=== PATIENT | female | born 1955 | race Caucasian/White ===

== ENCOUNTER → 2017-11-17 | Outpatient (CLI) | payer OTHER ==
[~2017-11-17] MED LIST: CALCIUM 500 +1 EAC5 PO; CARDIZEM CD240 MG PO; HYDROCHLOROTH12.5 M1 PO; LIPITOR10 MG PO; OMEGA-31000 M1 PO; PAXIL10 MG PO; VITAMIN B COMP1 EACH PO
--- NOTE | 2017-11-28 22:52 | ONC ---
[facility] [address] [place] [address] RADIATION ONCOLOGY NOTE Name: EFRA WILCOX Room: [facility]#: [id number] Admission: 11/17/17 Attend Phys: Ranjan Shine MD Discharge: Date of : 53 Report #: [id number] THIS REPORT FOR: //name// CC: Shazia Marr MD DATE OF SERVICE: 11/17/2017 RADIATION ONCOLOGY FOLLOWUP NOTE [facility] phone is [phone]. REFERRING PHYSICIANS: 1. Chalino Sanford M.D. 2. Karly Marr M.D. 3. Shazia La DO. PRIMARY SITE AND HISTOPATHOLOGY: The patient received radiation therapy as part of breast conservation therapy for a T2 N0 M0 right breast cancer. INTERVAL NOTE: The patient ended up having a mammogram performed in 09/2017, which revealed a group of calcifications in the right breast and so she had those biopsied on 10/26/2017 and those revealed benign findings. She denied having any nipple discharge from the right breast. She denied having nipple discharge from the left breast. She denied having any suspicious palpable masses involving the left breast. She denied having any suspicious palpable masses involving the right breast. MEDICATIONS: Diltiazem, hydrochlorothiazide, Lipitor and Paxil. REVIEW OF SYSTEMS: RESPIRATORY: Breathing was stable. She was not short of breath during her appointment. GASTROINTESTINAL: She has a good appetite. PHYSICAL EXAMINATION: With my nurse, Kiera Rivera, present: VITAL SIGNS: The patient weighed 149.6 pounds on 11/17/2017. She was 151.6 pounds on 06/14/2017; on 11/17/2017 blood pressure was 138/82, pulse 84, respirations 20 and pulse oximetry was 94% on room air. LYMPH NODES: The patient had no suspicious palpable cervical, supraclavicular or axillary lymphadenopathy. HEART: Had a regular rate and rhythm, without murmur. LUNGS: [place] [address] RADIATION ONCOLOGY NOTE Name: EFRA WILCOX Yann Room: [facility]#: [id number] Admission: 11/17/17 Attend Phys: Ranjan Shine MD Discharge: Date of : 53 Report #: [id number] BREASTS: Right breast was mildly hyperpigmented, but there were no suspicious palpable masses involving the right breast. There were no suspicious palpable masses involving the left breast. ABDOMEN: Not tender. Spleen was not palpable. Liver was at the costal margin. EXTREMITIES: Showed no clubbing, cyanosis or edema. LABORATORY DATA: From 10/07/2017: Sodium 138, potassium 3.3, BUN 16 and creatinine 0.73. White blood count 6.5, hemoglobin 12.9 and platelets 243,000. RADIOLOGIC DATA: The patient had a bilateral mammogram on 10/25/2017, which showed no suspicious masses, but she did have some new areas of calcifications in the right breast. She had those biopsied on 10/26/2017, which showed benign findings. ASSESSMENT AND PLAN: 1. History of right breast cancer- There is no evidence of breast cancer at this time. The patient is seeing her medical oncologist, Dr. Marr, on 11/30/2017. She also had lab work ordered at that time, and then, she had mammograms ordered on 04/19/2018 and she is scheduled to follow up with me on 04/25/2018. 2. Hypokalemia- The patient was given a prescription for potassium supplements for her low potassium, and she is scheduled for a metabolic panel with her medical oncologist, Dr. Marr, on 11/30/2017. She is seeing Dr. Marr on 11/30/2017. 3. Hypertension- The patient takes diltiazem and that is managed by her referring physician. 4. Hyperlipidemia- The patient takes Lipitor and that is managed by her referring physician. Thank you for allowing me to participate in the care of this patient. <ELECTRONICALLY SIGNED> By: Ranjan Shine MD 11/28/17 [id number] Shine MD /nt
== END ==
LOC: M.RTH 11-15 13:30
DX: I10 Essential (primary) hypertension (principal); E78.5 Hyperlipidemia, unspecified; E87.6 Hypokalemia; Z85.3 Personal history of malignant neoplasm of breast

== ENCOUNTER → 2018-12-02 | Outpatient (CLI) | payer OTHER ==
--- NOTE | 2018-12-04 03:18 | ONC ---
[place] [address] RADIATION ONCOLOGY NOTE Name: EFRA WILCOX Room: [facility]#: [id number] Admission: 12/02/18 Attend Phys: Ranjan Shine MD Discharge: Date of : 53 Report #: [id number] THIS REPORT FOR: //name// CC: Dr. Shazia Marr MD DATE OF SERVICE: 12/02/2018 REFERRING PHYSICIANS: Shazia La DO. [facility] phone is [phone]. PRIMARY SITE AND HISTOPATHOLOGY: The patient received radiation therapy as part of breast conservation therapy for a T2 N0 M0 right breast cancer. INTERVAL NOTE: The patient denied having any nipple discharge from the right breast. She denied having any nipple discharge from the left breast. She denied having any suspicious palpable masses involving the right breast. She denied having any suspicious palpable masses involving left breast. MEDICATIONS: Diltiazem, hydrochlorothiazide, Lipitor, Paxil. REVIEW OF SYSTEMS: RESPIRATORY: Breathing was stable. The patient was not short of breath during her appointment. GASTROINTESTINAL: She had a good appetite. PHYSICAL EXAMINATION: with my nurse, Kiera Rivera, present. VITAL SIGNS: The patient weighed 161.2 pounds on 12/02/2018, 149.6 pounds on 11/17/2017. On 12/02/2018 blood pressure was 150/72, pulse 90, oxygen saturation 96%, respirations 16. LYMPH NODES: The patient had no palpable cervical, supraclavicular or axillary lymphadenopathy. HEART: Had a regular rate and rhythm without murmur. LUNGS: were clear to auscultation. BREASTS: Right breast had no suspicious palpable masses. Left breast had no suspicious palpable masses. ABDOMEN: Nontender. Spleen was not palpable. Liver was at the costal margin. EXTREMITIES: Had no clubbing, cyanosis or edema. LABORATORY DATA: She had a CA27-29 on 10/19/2018 which was 24.1. RADIOLOGIC DATA: she had a bilateral mammogram on 11/19/2018 [place] [address] RADIATION ONCOLOGY NOTE Name: EFRA WILCOX Room: [facility]#: [id number] Admission: 12/02/18 Attend Phys: Ranjan Shine MD Discharge: Date of : 53 Report #: [id number] which revealed benign findings. Because of the density of the breast, they suggested possibly a screening ultrasound of the breast, but the patient did not want to proceed with that. ASSESSMENT AND PLAN: 1. History of right breast cancer- There is no evidence of breast cancer at this time and the patient was given a requisition for a bilateral mammogram in 10/2019 or 11/2019. She was asked to follow up with me afterwards. She has an appointment with her medical oncologist, Dr. Marr on 02/03/2019. 2. Hypertension- The patient takes diltiazem, hydrochlorothiazide and that is managed by her referring physicians. 3. Hyperlipidemia- The patient takes Lipitor and that is managed by her referring physicians. Thank you for allowing me to participate in the care of this patient. <ELECTRONICALLY SIGNED> By: Ranjan Shine MD 12/04/18 0318 [id number] Shine MD /nt
== END ==
LOC: M.RTH 05:05
DX: Z08 Encounter for follow-up examination after completed treatment for malignant neoplasm (principal); I10 Essential (primary) hypertension; E78.5 Hyperlipidemia, unspecified; Z79.899 Other long term (current) drug therapy; Z85.3 Personal history of malignant neoplasm of breast

== ENCOUNTER → 2020-02-27 | Outpatient (CLI) | payer MEDICARE, OTHER | LOC: M.RAD 13:04 | PROVIDERS: ATTEND Registered Nurse Diabetes Educator | DX: M85.88 Other specified disorders of bone density and structure, other site (principal); Z78.0 Asymptomatic menopausal state ==

== ENCOUNTER → 2020-03-22 | Outpatient (CLI) | payer MEDICARE ==
--- NOTE | ~2020-03-22 | ONC ---
[address] [address] RADIATION ONCOLOGY NOTE Name: EFRA WILCOX Room: [facility]#: [id number] Admission: 03/22/20 Attend Phys: Ranjan Shine MD Discharge: Date of : 53 Report #: [id number] THIS REPORT FOR: //name// CC: Ranjan Sanford RADIATION ONCOLOGY FOLLOWUP NOTE [facility] phone is [phone]. PRIMARY SITE AND HISTOPATHOLOGY: The patient received radiation therapy as part of breast-conservation therapy for a T2 N0 M0 right breast cancer. INTERVAL NOTE: The patient received radiation therapy as part of breast-conservation therapy for a T2 N0 M0 right breast cancer. 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 She received a total of 4256 cGy to the right breast and 266 cGy daily fractions followed by 1200 cGy Boost and 200 cGy fractions for a cumulative dose of 5456 cGy. INTERVAL NOTE: The patient denied having any nipple discharge from the right breast. She denied having any nipple discharge from the left breast. She denied having any suspicious palpable masses involving the right breast. She denied having any suspicious palpable masses involving the left breast. She denied having any upper extremity edema. MEDICATIONS: Diltiazem, hydrochlorothiazide, Lipitor, Paxil, and metformin. SOCIAL HISTORY: Cigarettes: This patient smoked about a quarter pack of cigarettes per day since about 1973. REVIEW OF SYSTEMS: RESPIRATORY: Breathing was stable. The patient was not short of breath during her appointment. GASTROINTESTINAL: She had a good appetite. PHYSICAL EXAMINATION: With my nurse, Kiera Rivera, present: VITAL SIGNS: She was 158.6 pounds on 03/22/2020. The patient was 161.2 pounds on 12/12/2018. On 03/22/2020, blood pressure is 150/77, temperature 97.5 degrees Fahrenheit, pulse was 77, oxygen saturation was 96%. Patient was seen with my nurse, Kiera Rivera, present. LYMPH NODES: She had no palpable cervical or supraclavicular or axillary lymphadenopathy. HEART: Had a regular rate and rhythm without murmur. LUNGS: Clear to auscultation. BREASTS: Right breast had no suspicious palpable masses. Left breast [place] [address] RADIATION ONCOLOGY NOTE Name: EFRA WILCOX Room: [facility]#: [id number] Admission: 03/22/20 Attend Phys: Ranjan Shine MD Discharge: Date of : 53 Report #: [id number] ABDOMEN: Nontender. Spleen is not palpable. Liver was at the costal margin. EXTREMITIES: Had no clubbing, cyanosis or edema. LABORATORY DATA: From 02/08/2020, CA27-29 was 30. RADIOLOGIC DATA: The patient had a bilateral mammogram on 02/05/2020, which just revealed benign findings. In terms of the CA27-29 less than 38 was within normal limits. ASSESSMENT AND PLAN: 1. History of right breast cancer. There is no evidence of breast cancer at this time. The patient has an appointment scheduled with her medical oncologist, Dr. Marr on 08/22/2020. She was given a requisition for a bilateral mammogram in about 1 year and the patient was asked to schedule a followup appointment to see me afterwards. 2. Hyperlipidemia -- The patient takes Lipitor and that is managed by her referring physicians. 3. Hypertension -- The patient takes diltiazem, hydrochlorothiazide and that is managed by referring physicians. 4. Diabetes. The patient takes metformin that is managed by referring physicians. 5. Cigarette smoking. In the past, the patient had been encouraged to quit smoking. Thank you for allowing me to participate in the care of this patient. By: [id number] Shine MD /nieves
== END ==
LOC: M.RTH 12-01 09:00
PROVIDERS: ATTEND Radiology Radiation Oncology
DX: E11.9 Type 2 diabetes mellitus without complications (principal); I10 Essential (primary) hypertension; E78.00 Pure hypercholesterolemia, unspecified; Z85.3 Personal history of malignant neoplasm of breast; Z87.891 Personal history of nicotine dependence